=== PATIENT | female | born 1990 | race Caucasian/White ===

== ENCOUNTER 2018-03-18 15:30 | Outpatient (CLI) | payer MEDICAID, SELFPAY ==
[2018-03-22 09:01] LABS: HIV-1/2 Ag & Ab Screen Negative (NEGAT)
[2018-03-22 09:10] LABS: Hepatitis B Surface Ag Negative (NEGAT)
[2018-03-22 11:44] LABS: Hepatitis C Ab w Rflx HCV PCR Negative (NEGAT)
[2018-03-22 14:13] LABS: Syphilis Serology (RPR) Negative (Negative)
== END 2018-03-18 15:50 ==
PROVIDERS: PCP Family Medicine; Visit Provider Nurse Practitioner Women's Health
DX: Z11.3 Encounter for screening for infections with a predominantly sexual mode of transmission (principal); Z11.59 Encounter for screening for other viral diseases; Z01.84 Encounter for antibody response examination; Z11.4 Encounter for screening for human immunodeficiency virus [HIV]
CPT/HCPCS: 36415; 86803; 87340; 87389; 86592

== ENCOUNTER 2018-03-18 17:13 | Outpatient (REF) | payer MEDICAID, SELFPAY ==
[2018-03-22 13:36] LABS: Chlamydia Result Negative; GC Result Negative; Specimen Description CERVIX
== END 2018-03-18 17:33 ==
LOC: LBN 17:13
PROVIDERS: PCP Family Medicine; Visit Provider Nurse Practitioner Women's Health
DX: Z11.3 Encounter for screening for infections with a predominantly sexual mode of transmission (principal)
CPT/HCPCS: 87491; 87591

== ENCOUNTER 2018-05-10 02:37 | Outpatient (CLI) | payer MEDICAID, SELFPAY ==
--- NOTE | 2018-05-10 | PFT_ITS ---
PULMONARY FUNCTION TEST REPORT Patient identification Elizabeth Roach DATE OF 88 DATE OF SERVICE 05/10/18 REQUESTING PROVIDER Moriah Ruvalcaba NP INTERPRETATION OF STUDY Spirometry shows no evidence of obstructive airways disease. No bronchodilator response. LUNG VOLUMES - Lung volumes show no evidence of restriction. DIFFUSION CAPACITY- Markedly elevated. AIRWAY RESISTANCE - Elevated. IMPRESSION While there is no evidence of obstructive airways disease, the constellation of findings with markedly elevated diffusion capacity and airways resistance, can be seen in asthma. Clinical correlation recommended. Nydia Guidry M.D. Debi T 05/14/18 Methacholine challenge test Patient identification Elizabeth Roach DATE OF 88 DATE OF SERVICE 05/10/18 Methacholine challenge test After normal spirometry, Methacholine challenge testing was carried out up to a concentration of 16 mg per dl with good patient effort. At the highest concentration, the patient had a 17% drop in FEV1 and there was gradual decrease in FEV1 throughout the test. IMPRESSION Based on ATF criteria, this is considered to be a negative Methacholine challenge test, however, given the gradual and fairly impressive drop in FEV1 throughout the test in conjunction with very high diffusion capacity, and airways resistance on baseline pulmonary function testing, this study and the constellation of findings are still suggestive of underlying hyper reactive airways disease, therefore clinical correlation recommended. Nydia Guidry M.D. Debi T 05/14/18
[2018-05-10] MEDS: Albuterol HFA 18 GM 200 PUFF INH IH (15:21)
[2018-05-10] MEDS: Methacholine 100 MG VIAL IH (15:21)
[2018-05-10] MEDS: Inhaler, Assist Device 1 EACH MC (15:21)
== END 2018-05-10 02:57 ==
PROVIDERS: PCP Family Medicine; Visit Provider Nurse Practitioner Family
DX: R06.2 Wheezing (principal); R94.2 Abnormal results of pulmonary function studies
CPT/HCPCS: 94060; 94150; 94726; 94729; 95070; 94010; J7674

== ENCOUNTER 2018-06-14 00:55 | Outpatient (CLI) | payer MEDICAID, SELFPAY ==
--- NOTE | 2018-06-14 13:39 | DI.RAD_ITS ---
SYMPTOMS/DIAGNOSIS: REACTIVE AIRWAY DYSFUNCTION SYNDROME, J68.3, ? ASTHMA CHEST X-RAY, PA AND LATERAL: Comparison is 09/22/10. The heart is normal in size. The lungs are clear. The mediastinal structures and pleura appear intact. IMPRESSION: Normal chest.
== END 2018-06-14 01:15 ==
PROVIDERS: PCP Nurse Practitioner Family; Visit Provider Nurse Practitioner Family
DX: J68.3 Other acute and subacute respiratory conditions due to chemicals, gases, fumes and vapors (principal)
CPT/HCPCS: 71046

== ENCOUNTER 2019-07-29 02:02 | Outpatient (CLI) | payer MEDICAID, SELFPAY ==
--- NOTE | 2019-07-29 07:30 | DI.US_ITS ---
EXAM: US PELVIS TRANSVAGINAL CLINICAL HISTORY: Oligomenorrhea, PCOS, E28.2. TECHNIQUE: Transabdominal and transvaginal pelvic ultrasound was performed using standard protocol. COMPARISON: US PELVIS TRANSVAG from 07/31/2010 FINDINGS: KIDNEYS: Kidneys are symmetric in size. No evidence of renal calculi. No evidence of hydronephrosis. No renal mass or cyst identified. UTERUS: Position: Anteverted. Size: 6.5 long by 2.8 AP by 4.1 transverse cm Endometrium: 0.3 cm. Normal for patient's menstrual status. Myometrium: Unremarkable. Cervix: Cervical nabothian cyst. OVARIES: Right: 2.8 x 3 x 1.6 cm. Right ovarian volume is 10.4 cc. Cyst or mass: Multiple follicular cysts in the right ovary. (Greater than 20). Left: 2.8 x 2 x 2.4 cm. Left ovarian volume is 10.6 cc. Cyst or mass: Multiple follicular cysts in the left ovary. (Greater than 25). DOPPLER: Color: Symmetric and uniform flow to both ovaries. No hyperemia. Duplex: Normal ovarian arterial waveforms visualized. CUL-DE-SAC: Free fluid: None. Other: None. IMPRESSION: 1. Normal sonographic appearance of the kidneys. 2. Normal-appearing uterus with endometrial stripe within normal limits. 3. Multiple follicular cysts in both ovaries. Polycystic ovarian syndrome may be considered. DATA REPOSITORY:
== END 2019-07-29 02:22 ==
PROVIDERS: PCP Nurse Practitioner Family; Visit Provider Obstetrics & Gynecology
DX: N91.5 Oligomenorrhea, unspecified (principal); E28.2 Polycystic ovarian syndrome
CPT/HCPCS: 76830; 76856

== ENCOUNTER 2019-10-25 00:54 | Outpatient (CLI) | payer MEDICAID, SELFPAY ==
--- NOTE | 2019-10-25 | DI.US_ITS ---
APPROVED REPORT EXAM: Comprehensive 2D, Doppler, and color-flow Echocardiogram Patient Location: Out-Patient Drug Safety Associate: Kaity Lynch RDCS (AE) Indications: Exertional chest pain, Palpitations, Substance abuse Other Information Study Quality: Good Conclusion Left-ventricular chamber size and wall thickness. Estimated ejection fraction is 60 to 65%. There a re no segmental wall motion abnormalities Normal right ventricular size and systolic function Atria are normal in size There are no structural valvular abnormalities nor any hemodynamically significant valvular abnormali ties Wall motion Left Ventricle The left ventricle is normal size. The left ventricular systolic function is normal. The left ventric ular ejection fraction is within the normal range. There is normal left ventricular wall thickness. T here is normal LV segmental wall motion. There is no ventricular septal defect visualized. . LVEF is 60-65%. Right Ventricle The right ventricle is normal size. The right ventricular systolic function is normal. Atria The left atrium size is normal. The right atrium size is normal. The interatrial septum is intact wit h no evidence for an atrial septal defect. Aortic Valve Aortic valve is trileaflet. There is no aortic valvular stenosis. No aortic regurgitation is present. Mitral Valve The mitral valve is normal in structure. No evidence of mitral valve stenosis. Trace mitral regurgita tion. Tricuspid Valve The tricuspid valve is normal in structure. There is no tricuspid valve stenosis. Trace tricuspid reg urgitation. Unable to assess PA pressure. Pulmonic Valve The pulmonary valve is normal in structure. There is no pulmonic valvular stenosis. Trace pulmonic re gurgitation. Great Vessels The aortic root is normal in size. The ascending aorta is normal in size. IVC is normal in size and c ollapses >50% with inspiration. Pericardium There is no pericardial effusion. 2D Dimensions IVSD d PLAX 0.90 cm F: 0.6-1.0 LV Vol A2C d MOD 105.4 mL LVPW d PLAX 0.94 cm F: 0.6 - 1.0 LV Vol A4C d MOD 127.0 mL LVID d PLAX 5.17 cm F: 3.8 - 5.2 LA vol/ BSA A2C s A-L 17.7 mL/m2 LVDs 3.35 cm F: 2.2 - 3.5 LA vol/ BSA A4C s A-L 24.3 mL/m2 Ao Root d 2.18 cm F: 2.7 - 3.3 LA Vol/ BSA Biplane s A-L 21.9 mL/m2 RA Area A4C 15.93 cm2 LA Area A4C s MOD 17.72 cm2 RA Vol/ BSA A4C s A-L 23.4 mL/m2 LA Area A2C s MOD 14.34 cm2 Ao Asc Diam d 2.64 cm F: 2.3 - 3.1 LV EF A4C MOD 59.2 % LV EF Teichholz 63.2 % LV EF A2C MOD 60.4 % LVEF (Brewster's) 58.67 % F: 54 - 74 LV EF Biplane MOD 58.7 % LV Volume 87.06 mL F: 46 - 106 SV 68.52 mL LV Volume Index 42.88 mL/m2 F: 29 - 61 SV Index 33.64 mL/m2 LV Vol Biplane MOD 116.8 mL FS 34.45 % M-Mode TAPSE 2.68 cm (M/F) >1.7 LV Diastology MV E' medial 0.126 (>0.07 m/s) E/A Ratio 1.8 LV E/e MED 5.50 (<14) MV E Vmax 0.70 (0.4-1.3 m/s) MV E' lateral 0.113 (>0.1 m/s) MV A Vmax 0.40 (0.4-1.3 m/s) LV E/e LAT 6.15 (<14) MV E/A Ratio 1.68 MV E/E' medial 5.54 MV E/E' lateral 6.16 Aortic Valve LVOT Area 3.69 cm2 AoV Area Vmax 2.93 cm2 LVOT Vmax 1.05 m/s AoV Area/ BSA (Vmax) 1.44 cm2/m2 LVOT Mean Shay. 0.64 m/s NATHANIEL Mean Shay. 2.44 cm2 LVOT Peak Grad 4.4 mmHg NATHANIEL Mean Shay. Index 1.20 cm2/m2 LVOT Mean Grad 2.0 mmHg LVOT VTI 0.204 m LVOT Diam s 2.15 cm AoV Vmax 1.32 m/s Velocity Ratio 0.79 AoV Mean Shay. 0.97 m/s AoV Peak Grad 7.0 mmHg LVOT SV 75.38 mL AoV Mean Grad 4.0 mmHg AoV VTI 0.250 m AoV Area VTI 3.02 cm2 AoV Area/ BSA (VTI) 1.48 cm/m2 Mitral Valve MV DT 206 (160-240 msec) MV PHT 60 msec MV Area PHT 3.69 cm2 Pulmonary Valve PV Vmax 1.08 (0.5-1.5 m/s) RVOT Peak Gr. 2.19 mmHg PV Peak Grad 4.6 mmHg RVOT Mean Gr. 1.10 mmHg PV Mean Grad 2.2 mmHg RVOT VTI 0.167 m PV VTI 0.225 m RVOT Vmax 0.74 m/s
== END 2019-10-25 01:14 ==
PROVIDERS: PCP Nurse Practitioner Family; Visit Provider Family Medicine
DX: R07.89 Other chest pain (principal); F14.21 Cocaine dependence, in remission
CPT/HCPCS: 93306

== ENCOUNTER 2019-12-14 17:03 | Outpatient (REF) | payer MEDICAID, SELFPAY ==
[2019-12-16 19:48] LABS: Patient Race White; SARS-CoV-2 RNA Undetected (Undetected); SARS-CoV-2 Specimen Source Nasopharynx
== END 2019-12-14 17:23 ==
LOC: NCHCN 17:03
PROVIDERS: PCP Nurse Practitioner Family; Visit Provider Nurse Practitioner Family
DX: R05 Cough (principal)
CPT/HCPCS: U0003

== ENCOUNTER 2020-07-09 15:45 | Outpatient (REF) | payer MEDICAID, SELFPAY ==
--- NOTE | 2020-07-09 13:00 | PAPFT_PTH ---
PATIENT: Elizabeth Roach LOC: [facility] U#:[id number] AGE/SX: 30/F ROOM: RE07/09/[address]: FLY Oneal : 1990 BED: DIS: 07/09/2020 SPEC #: [id number] RECD: 07/09/20 18:34 STATUS: NICRock REQ #: [id number] KATINA: 07/09/20 13:[address]: Adwoa Branham DEPT: [facility] Cytology RECD BY: Stacy Gomez ENTERED: 07/09/20 18:35 SP TYPE: PAPFT OTHR DR: Moriah Ruvalcaba Tissues: 1 - CX/ENDOCX FOR PAP SMEARS Procedures: PAP THIN PREP/UVM Screening HPV DNA PROBE Comments: [id number]
[2020-07-10 13:50] LABS: Chlamydia Result Negative (Negative); GC Result Negative (Negative)
== END 2020-07-09 15:46 | disposition home or self-care (01) ==
LOC: LBN 15:45
PROVIDERS: PCP Nurse Practitioner Family; Visit Provider Nurse Practitioner Family
DX: Z11.3 Encounter for screening for infections with a predominantly sexual mode of transmission (principal); Z12.4 Encounter for screening for malignant neoplasm of cervix; Z11.51 Encounter for screening for human papillomavirus (HPV)
CPT/HCPCS: 87491; 87591; 88142; 87624

== ENCOUNTER 2021-02-11 18:58 | Outpatient (REF) | payer MEDICAID, SELFPAY ==
[2021-02-11 19:34] LABS: Anion Gap 6.8 mmol/L (3-11); BUN 13 mg/dL (7-18); CO2 29.2 mmol/L (21.0-32.0); CREATININE 0.9 mg/dL (0.55-1.02); Calcium 8.8 mg/dL (8.5-10.1); Chloride 105 mmol/L (98-107); Glucose 115 mg/dL (74-106); Potassium 4.2 mmol/L (3.5-5.1); Sodium 141 mmol/L (136-145)
[2021-02-11 19:38] LABS: Hemoglobin A1C 5.4 % (<5.7)
== END 2021-02-11 18:59 | disposition home or self-care (01) ==
LOC: NCHCN 18:58
PROVIDERS: PCP Nurse Practitioner Family; Visit Provider Family Medicine
DX: R73.09 Other abnormal glucose (principal); Z51.81 Encounter for therapeutic drug level monitoring
CPT/HCPCS: 80048; 83036

== ENCOUNTER 2021-09-26 07:08 | Emergency (ER) | payer MEDICAID, SELFPAY ==
[2021-09-26 07:13] VITALS: BP 129/107; PULSE 83; RESP 16; TEMP 37.2; O2SAT 99
--- NOTE | 2021-09-26 08:00 | DI.RAD_ITS ---
Exam(s) XR RIBS RT W PA LAT CHEST EXAM: XR RIBS RT W PA LAT CHEST CLINICAL HISTORY: Right Rib pain TECHNIQUE: 2D digital imaging was performed. COMPARISON: CR XR CHEST 2V PA LATERAL from 06/14/2018 FINDINGS: Six views: Right ribs-four views: There are no acute rib fractures evident. No lytic rib lesions identified. Chest x-ray-two views: No lung contusion or pneumothorax. There is no pleural effusion evident. Heart size is normal and there is no significant mediastinal widening. IMPRESSION: 1. No rib fractures evident. Also no obvious rib lesions. 2. No ipsilateral lung nor pleural abnormality evident. No pneumothorax. DATA REPOSITORY: RADIATION DOSE DELIVERED:
--- NOTE | 2021-09-26 08:00 | DI.RAD_ITS ---
Exam(s) XR SHOULDER RT COMPLETE 2+V EXAM: XR SHOULDER RT COMPLETE 2+V CLINICAL HISTORY: Right shoulder pain. TECHNIQUE: 2D digital imaging was performed. COMPARISON: CR LEFT SCAPULA from 09/22/2010 FINDINGS: Five views: No evidence of fracture or dislocation. No soft tissue calcifications. Subacromial space unremarkab le. No degenerative changes in the glenohumeral and AC joints. Bone density normal. No osseous les ions. IMPRESSION: No significant radiograph findings in the right shoulder. DATA REPOSITORY: RADIATION DOSE DELIVERED:
--- NOTE | 2021-09-26 08:09 | PDOC.ERCMPRO ---
- If Service Date Differs Date of service: 09/26/21 Time of Service: 08:10 Care Management Progress Note SBIRT screen positive for nicotine (4) and alcohol (AUDIT 8). Brief intervention regarding alcohol and low risk guidelines for harm reduction. Pt reports she has been drinking only twice monthly but typically has 5-6 drinks per occasion. Pt states she has been vaping nicotine daily after switching to vape from smoking to reduce risk. Pt was not interested in any cessation resources at this time.
--- NOTE | 2021-09-26 08:14 | ED.GENADUL_ITS ---
Discharge Plan Disposition Patient Disposition: HOME Condition: Stable Discharge Details Clinical Impression: Musculoskeletal arm pain Primary Care Provider: Moriah Ruvalcaba ED Provider: Cindy Bardales Home Meds and New Rx's Prescriptions: No Action albuterol sulfate 90 mcg/actuation aerosol powdr breath activated 2 inh IH Q6H PRN spironolactone 50 mg tablet 50 mg PO DAILY Qty: 60 4RF metformin [Glucophage] 500 mg tablet 500 mg PO DAILY Qty: 90 4RF medroxyprogesterone [Provera] 5 mg tablet 5 mg PO DAILY Qty: 21 4RF Rx Instructions: Take the first 7 days of the month for with drawl bleed to follow (do not take if you suspect you are ) dextroamphetamine-amphetamine [Adderall] 10 MG tablet 10 mg PO BID budesonide-formoterol [Symbicort] 160-4.5 mcg/actuation HFA aerosol inhaler 2 puff IH BID clindamycin phosphate 1 % solution 1 applic TP BID lamotrigine 100 mg tablet 200 mg PO DAILY metformin 500 mg tablet 500 mg PO DAILY Label Comments: TAKE 1 TABLET BY MOUTH DAILY lorazepam 0.5 mg tablet 0.5 mg PO PRN PRN Label Comments: TAKE 1 TABLET BY MOUTH TWICE DAILY NEEDED FOR ANXIETY dextroamphetamine-amphetamine 20 mg tablet 20 mg PO DAILY Spiriva with HandiHaler 18 mcg capsule, w/inhalation device 18 mcg INHALATION DAILY Label Comments: INHALE THE CONTENTS OF 1 CAPSULE VIA INHALATION DEVICE EVERY DAY DIRECTED budesonide-formoterol [Symbicort] 160-4.5 mcg/actuation HFA aerosol inhaler 160 inh INHALATION PRN PRN Label Comments: Inhale 2 puff by mouth twice a day Discharge Instructions Instructions: Muscle Strain (ED) Additional Instructions: At this time x-rays are within normal limits. No evidence of dislocation, inflammation or bony abnormality. Lungs are also within normal limits. Take the tramadol with food as directed. Apply topical icy hot or Biofreeze or similar. Alternate ice and heat. Attempt massage. You will start feeling better over the next 3 to 5 days. May take few weeks for it to completely heal. Follow up with primary care provider in 3-5 days. Return to ED sooner if any worsening or concerns. Increase oral fluids. Please take Tylenol or Ibuprofen with food every 4-6 hours as needed for pain and swelling. Referrals: Moriah Ruvalcaba [Primary Care Provider] - 5 days Medical Decision Making 31-year-old female presents to the ER with chief complaint of right lateral rib pain, right shoulder pain which began yesterday. Morning after stretching. She reports that the pain starts in her rib cage and shoots up to her neck. Patient is tearful, reports posterior right shoulder pain and anterior right lateral rib pain with right arm abduction. X-ray ribs and right shoulder ordered. Lidocaine patch and ibuprofen 800 mg p.o. X-rays show no acute bony, pulmonary abnormality. No dislocations noted. We will give patient tramadol dispo follow-up with primary care provider will instruct on RICE procedures alternating ice and heat. Discussed x-ray results with patient who verbalized understanding. Discussed home care and strict return instructions. This text was generated using Fliqzation system, please disregard any oddities of phrase or misspellings. Medical Records Medical records reviewed: Yes I reviewed the patient's medical records. Imaging Data Radiologic Study: Imaging: X-Ray Radiologist's impression: EXAM: XR RIBS RT W PA LAT CHEST CLINICAL HISTORY: Right Rib pain TECHNIQUE: 2D digital imaging was performed. COMPARISON: CR XR CHEST 2V PA LATERAL from 06/14/2018 FINDINGS: Six views: Right ribs-four views: There are no acute rib fractures evident. No lytic rib lesions identified. Chest x-ray-two views: No lung contusion or pneumothorax. There is no pleural effusion evident. Heart size is normal and there is no significant mediastinal widening. IMPRESSION: 1. No rib fractures evident. Also no obvious rib lesions. 2. No ipsilateral lung nor pleural abnormality evident. No pneumothorax. Radiologic Study #2: Imaging: X-Ray Radiologist's impression: EXAM: XR SHOULDER RT COMPLETE 2+V CLINICAL HISTORY: Right shoulder pain. TECHNIQUE: 2D digital imaging was performed. COMPARISON: CR LEFT SCAPULA from 09/22/2010 FINDINGS: Five views: No evidence of fracture or dislocation. No soft tissue calcifications. Subacromial space unremarkable. No degenerative changes in the glenohumeral and AC joints. Bone density normal. No osseous lesions. IMPRESSION: No significant radiograph findings in the right shoulder. HPI General Mode of arrival: ambulatory . Date/Time Provider Initiated Documentation: 09/26/21 08:05 . Limitations to Documentation: no limitations . Information obtained by: patient, RN notes reviewed and old records reviewed . HPI Narrative: 31-year-old female presents to the ER with chief complaint of right lateral rib pain, right shoulder pain which began yesterday. Morning after stretching. She reports that the pain starts in her rib cage and shoots up to her neck. Patient is tearful, reports posterior right shoulder pain and anterior right lateral rib pain with right arm abduction. She is able to raise her arm approximately 90 degrees and complains of pain. Lungs are clear to auscultation bilaterally. Denies any cough or respiratory distress, she has been taking muscle relaxers and Flexeril at home with little to no relief. No other associated symptoms. Patient has a past medical history of PCOS, migraines, anxiety, obesity. Related Data Home Medications Medication Instructions Recorded Confirmed dextroamphetamine-amphetamine 10 10 mg PO BID 08/10/17 03/26/20 mg tablet (Adderall) albuterol sulfate 90 mcg/actuation 2 inh inhalation Q6H PRN 05/10/18 03/26/20 breath activated powder inhaler budesonide-formoterol HFA 160 2 puff inhalation BID 03/23/19 03/26/20 mcg-4.5 mcg/actuation aerosol inhaler (Symbicort) clindamycin phosphate 1 % topical 1 applic topical BID 03/23/19 03/26/20 solution lamotrigine 100 mg tablet 200 mg PO DAILY 03/23/19 03/26/20 medroxyprogesterone 5 mg tablet 5 mg PO DAILY #21 tabs 03/26/20 03/26/20 (Provera) metformin 500 mg tablet 500 mg PO DAILY #90 tabs 03/26/20 09/26/21 (Glucophage) spironolactone 50 mg tablet 50 mg PO DAILY #60 tabs 03/26/20 09/26/21 budesonide-formoterol HFA 160 160 inh inhalation PRN PRN 09/26/21 09/26/21 mcg-4.5 mcg/actuation aerosol inhaler (Symbicort) dextroamphetamine-amphetamine 20 20 mg PO DAILY 09/26/21 09/26/21 mg tablet lorazepam 0.5 mg tablet 0.5 mg PO PRN PRN 09/26/21 09/26/21 metformin 500 mg tablet 500 mg PO DAILY 09/26/21 09/26/21 tiotropium bromide 18 mcg capsule 18 mcg inhalation DAILY 09/26/21 09/26/21 with inhalation device (Spiriva with HandiHaler) Previous Rx's Medication Instructions Recorded medroxyprogesterone 5 mg tablet 5 mg PO DAILY #21 tabs 03/26/20 (Provera) metformin 500 mg tablet 500 mg PO DAILY #90 tabs 03/26/20 (Glucophage) spironolactone 50 mg tablet 50 mg PO DAILY #60 tabs 03/26/20 Allergies Allergy/AdvReac Type Severity Reaction Status Date / Time lamotrigine Allergy Intermediate body rash Verified 09/26/21 07:19 varenicline tartrate AdvReac Severe Psychotic Verified 09/26/21 07:19 [From Chantix] Reaction General Stated Complaint: Orthopedic JULI: 4 Review of Systems All systems reviewed & are unremarkable except as noted in HPI and below Musculoskeletal Musculoskeletal: Reports as per HPI PFSH All Active Problems (Updated 09/26/21 @ 09:17 by Cindy Bardales NP) Musculoskeletal arm pain (Acute) Abnormal uterine bleeding (Acute) PCOS (polycystic ovarian syndrome) (Acute) Multiple lipomas (Acute) Hirsutism (Chronic 05/04/17) Migraine (Chronic 05/04/17) Medical History Acute sinusitis, unspecified Amenorrhea, unspecified Anxiety Attention and concentration deficit Body mass index (BMI) 40.0-44.9, adult Chronic back pain Constipation GERD (gastroesophageal reflux disease) Herpes simplex type 1 infection Hidradenitis suppurativa History of PCOS Hx of hemorrhoids Lipoma of back Macromastia Nonspecific abnormal Papanicolaou smear of cervix Obesity Reactive airways dysfunction syndrome Tobacco use Surgical History Biopsy, Soft Tissue (05/19/17) right breast - follicular cyst Family History Self Adopted Other Multiple lipomas Social History Smoking/Tobacco Use Status: Former Tobacco Use Smoking risk assessment performed?: Yes Drug use: Never Substance use type: does not use Do you feel safe at home: Yes Do you feel safe in your relationship?: Yes Female Reproductive History Menstrual control method: none History History 1 Para 0 Hx # Term Pregnancies Multiple births Hx # Pregnancies Ectopic pregnancies AB induced Hx Number of Living Children AB spontaneous Exam Const General: cooperative, healthy appearing, comfortable and well developed Nutritional Appearance: overweight Orientation: alert and oriented x3 Neck Neck: full ROM and supple Resp Effort & Inspection: normal respiratory effort, able to speak in complete sentences, no audible wheezes, no cough and not labored Auscultation: clear to auscultation bilaterally Cardio Rate: regular rate Rhythm: regular rhythm Heart Sounds: S1 normal and S2 normal Back/Spine/Pelvis Back: no CVA tenderness Cervical Spine: normal cervical lordosis Thoracic/Lumbar Spine: thoracic and lumbar spine normal to inspection and other (Right lateral rib cage tenderness: Patient reports deep pain.) Skin General skin exam: no rashes or lesions noted Lesions: no lesions Rashes: no rashes Course Vital Signs Vital signs: Vital Signs Temperature 37.2 C 09/26/21 07:13 Pulse 83 09/26/21 07:13 Respiratory Rate 16 09/26/21 07:13 Blood Pressure 129/107 H 09/26/21 07:13 Pulse Oximetry 99 09/26/21 07:13 Temperature 37.2 C 09/26/21 07:13 Pulse 83 09/26/21 07:13 Respiratory Rate 16 09/26/21 07:13 Respiratory Effort 09/26/21 07:23 Blood Pressure 129/107 H 09/26/21 07:13 Pulse Oximetry 99 09/26/21 07:13 Pain Level 10 09/26/21 07:23
[2021-09-26] MEDS: Ibuprofen 800 MG TAB PO (09:04)
[2021-09-26] MEDS: Lidocaine 5% Patch 1 PATCH TP (09:04)
== END 2021-09-26 09:51 | disposition home or self-care (01) ==
PROVIDERS: Emergency Provider Registered Nurse Emergency; PCP Nurse Practitioner Family
DX: M79.601 Pain in right arm (principal); R07.81 Pleurodynia; M25.511 Pain in right shoulder; E66.3 Overweight; Z87.891 Personal history of nicotine dependence
CPT/HCPCS: 99284; 71046; 71100; 73030

== ENCOUNTER 2021-09-28 03:58 | Emergency (ER) | payer MEDICAID, SELFPAY ==
[2021-09-28 04:05] VITALS: BP 131/75; PULSE 83; RESP 14; TEMP 36.4; O2SAT 0
--- NOTE | 2021-09-28 04:24 | ED.GENADUL_ITS ---
Discharge Plan Disposition Patient Disposition: HOME Condition: Good Discharge Details Clinical Impression: Muscle strain of right upper back Primary Care Provider: Moriah Ruvalcaba ED Provider: Mateo Willams Home Meds and New Rx's Prescriptions: New lidocaine [Lidoderm] 5 % adhesive patch,medicated 1 patch Topical Q24H Qty: 15 0RF Continued albuterol sulfate 90 mcg/actuation aerosol powdr breath activated 2 inh IH Q6H PRN spironolactone 50 mg tablet 50 mg PO DAILY Qty: 60 4RF metformin [Glucophage] 500 mg tablet 500 mg PO DAILY Qty: 90 4RF medroxyprogesterone [Provera] 5 mg tablet 5 mg PO DAILY Qty: 21 4RF Rx Instructions: Take the first 7 days of the month for with drawl bleed to follow (do not take if you suspect you are ) dextroamphetamine-amphetamine [Adderall] 10 MG tablet 10 mg PO BID budesonide-formoterol [Symbicort] 160-4.5 mcg/actuation HFA aerosol inhaler 2 puff IH BID clindamycin phosphate 1 % solution 1 applic TP BID lamotrigine 100 mg tablet 200 mg PO DAILY metformin 500 mg tablet 500 mg PO DAILY Label Comments: TAKE 1 TABLET BY MOUTH DAILY lorazepam 0.5 mg tablet 0.5 mg PO PRN PRN Label Comments: TAKE 1 TABLET BY MOUTH TWICE DAILY NEEDED FOR ANXIETY dextroamphetamine-amphetamine 20 mg tablet 20 mg PO DAILY Spiriva with HandiHaler 18 mcg capsule, w/inhalation device 18 mcg INHALATION DAILY Label Comments: INHALE THE CONTENTS OF 1 CAPSULE VIA INHALATION DEVICE EVERY DAY DIRECTED budesonide-formoterol [Symbicort] 160-4.5 mcg/actuation HFA aerosol inhaler 160 inh INHALATION PRN PRN Label Comments: Inhale 2 puff by mouth twice a day Discharge Instructions Additional Instructions: At this time your symptoms are consistent with a rhomboid muscle strain pattern. Please continue to use the heating pad, Lidoderm patches, Tylenol and Motrin, and cyclobenzaprine as directed. Please continue to perform mild gentle st retches of the back area. You can take 1 mg of Ativan every 8 hours as needed for muscle tension. Please be well aware that this may cause lightheadedness, and drowsiness. Do not take this medication with the cyclobenzaprine. If you notice any worsening of your symptoms, or any new symptoms such as vomiting, diarrhea, fever, chills, shortness of breath, chest pain, numbness, weakness, or fainting , please return immediately to the emergency department for reevaluation. Please follow up with your primary care provider as soon as possible for reassessment and reevaluation. As always, it was a pleasure participating in your medical care today. Referrals: Moriah Ruvalcaba [Primary Care Provider] - Medical Decision Making This is a 31-year-old female with a past medical history of reactive airway disease, BMI of 37.8, previous lipomas, PCOS, who presents today for right back pain. Patient states that 2 to 3 days ago she had been stretching, had lifted her arm above her head and developed a notable cramping sensation in her right upper back. She came to the emergency department the next day, chest x-rays and rib x-rays were performed which were negative. Diagnosis was musculoskeletal strain. She was started on cyclobenzaprine, recommended close please also follow up with your primary care provider as soon as possible for reassessment and reevaluation. Patient was unable to to schedule a close follow-up appointment with her family doctor secondary to a fall schedule, and she has had continued but slowly improving pain. She states that the pain is better than it was before but it is still keeping her from sleeping at night. She denies any shortness of breath, arm neck or shoulder pain, trauma, pleuritic chest pain, long trips, surgeries, procedures, family history of pulmonary embolisms or blood clots, oral contraceptive use, or family history of cardiac disease at young age. She does vape but does not smoke. She states that ice slightly improves her symptoms. She does not feel that the muscle relaxer is improving her symptoms. Exam demonstrates well-appearing female. Physical exam demonstrates a notable spasm and reproducible tenderness over the rhomboid muscle on the right shoulder. No other abnormalities on exam otherwise. No rib subluxation, no auscultation asymmetry for the lungs. Vital signs stable. Symptoms at this time appear notably clinically consistent with a muscle spasm. Patient states that her symptoms are gradually improving but she is most frustrated with not being able to sleep tonight. We did discuss risks and benefits of narcotic options, or tramadol. However the patient did show that she does have quite a few 0.5 mg Ativan still that she is prescribed by her PCP. I discussed with her that this is a muscle relaxant would probably be most effective. I recommended that she take 1 to 1.5 mg every 8 hours as needed for spasm or to sleep. I did inform her very clearly of the potential to make her feel more drowsy from this medication use, and I did make it very clear not to take the cyclobenzaprine while taking Ativan. Patient understands this. We will give a Lidoderm patch here, and sent a prescription to her pharmacy. We will recommend continued NSAIDs, stretching, and heating pad as needed. Recommend physical therapy on an outpatient basis. Discussed red flags for which to return. At this time there is no clinical evidence of pneumothorax, dissection, or ACS. I have extensively reviewed the treatment plan and discharge instructions with the patient and their family. I have addressed all patient concerns at this time. The patient and family was made aware of what symptoms to monitor for that would warrant a return to the emergency department. Discussed the plan with the patient and family, they demonstrate verbal understanding and agreement with our assessment and plan at this time. The documentation in this chart was dictated using [employer] dictation software. Please excuse any dictation errors. HPI General Date/Time Provider Initiated Documentation: 09/28/21 04:02 . HPI Narrative: This is a 31-year-old female with a past medical history of reactive airway disease, BMI of 37.8, previous lipomas, PCOS, who presents today for right back pain. Patient states that 2 to 3 days ago she had been stretching, had lifted her arm above her head and developed a notable cramping sensation in her right upper back. She came to the emergency department the next day, chest x-rays and rib x-rays were performed which were negative. Diagnosis was musculoskeletal strain. She was started on cyclobenzaprine, recommended close please also follow up with your primary care provider as soon as possible for reassessment and reevaluation. Patient was unable to to schedule a close follow-up appointment with her family doctor secondary to a fall schedule, and she has had continued but slowly improving pain. She states that the pain is better than it was before but it is still keeping her from sleeping at night. She denies any shortness of breath, arm neck or shoulder pain, trauma, pleuritic chest pain, long trips, surgeries, procedures, family history of pulmonary embolisms or blood clots, oral contraceptive use, or family history of cardiac disease at young age. She does vape but does not smoke. She states that ice slightly improves her symptoms. She does not feel that the muscle relaxer is improving her symptoms. Related Data Home Medications Medication Instructions Recorded Confirmed dextroamphetamine-amphetamine 10 10 mg PO BID 08/10/17 03/26/20 mg tablet (Adderall) albuterol sulfate 90 mcg/actuation 2 inh inhalation Q6H PRN 05/10/18 03/26/20 breath activated powder inhaler budesonide-formoterol HFA 160 2 puff inhalation BID 03/23/19 03/26/20 mcg-4.5 mcg/actuation aerosol inhaler (Symbicort) clindamycin phosphate 1 % topical 1 applic topical BID 03/23/19 03/26/20 solution lamotrigine 100 mg tablet 200 mg PO DAILY 03/23/19 03/26/20 medroxyprogesterone 5 mg tablet 5 mg PO DAILY #21 tabs 03/26/20 03/26/20 (Provera) metformin 500 mg tablet 500 mg PO DAILY #90 tabs 03/26/20 09/26/21 (Glucophage) spironolactone 50 mg tablet 50 mg PO DAILY #60 tabs 03/26/20 09/26/21 budesonide-formoterol HFA 160 160 inh inhalation PRN PRN 09/26/21 09/26/21 mcg-4.5 mcg/actuation aerosol inhaler (Symbicort) dextroamphetamine-amphetamine 20 20 mg PO DAILY 09/26/21 09/26/21 mg tablet lorazepam 0.5 mg tablet 0.5 mg PO PRN PRN 09/26/21 09/26/21 metformin 500 mg tablet 500 mg PO DAILY 09/26/21 09/26/21 tiotropium bromide 18 mcg capsule 18 mcg inhalation DAILY 09/26/21 09/28/21 with inhalation device (Spiriva with HandiHaler) lidocaine 5 % topical patch 1 patch topical Q24H #15 ea 09/28/21 (Lidoderm) Previous Rx's Medication Instructions Recorded medroxyprogesterone 5 mg tablet 5 mg PO DAILY #21 tabs 03/26/20 (Provera) metformin 500 mg tablet 500 mg PO DAILY #90 tabs 03/26/20 (Glucophage) spironolactone 50 mg tablet 50 mg PO DAILY #60 tabs 03/26/20 lidocaine 5 % topical patch 1 patch topical Q24H #15 ea 09/28/21 (Lidoderm) Allergies Allergy/AdvReac Type Severity Reaction Status Date / Time lamotrigine Allergy Intermediate body rash Verified 09/26/21 07:19 varenicline tartrate AdvReac Severe Psychotic Verified 09/26/21 07:19 [From Chantix] Reaction General Stated Complaint: GenMedical JULI: 4 Review of Systems All systems reviewed & are unremarkable except as noted in HPI and below PFSH All Active Problems Musculoskeletal arm pain (Acute) Muscle strain of right upper back (Acute) Abnormal uterine bleeding (Acute) PCOS (polycystic ovarian syndrome) (Acute) Multiple lipomas (Acute) Hirsutism (Chronic 05/04/17) Migraine (Chronic 05/04/17) Medical History Acute sinusitis, unspecified Amenorrhea, unspecified Anxiety Attention and concentration deficit Body mass index (BMI) 40.0-44.9, adult Chronic back pain Constipation GERD (gastroesophageal reflux disease) Herpes simplex type 1 infection Hidradenitis suppurativa History of PCOS Hx of hemorrhoids Lipoma of back Macromastia Nonspecific abnormal Papanicolaou smear of cervix Obesity Reactive airways dysfunction syndrome Tobacco use Surgical History Biopsy, Soft Tissue (05/19/17) right breast - follicular cyst Family History Self Adopted Other Multiple lipomas Social History Smoking/Tobacco Use Status: Former Tobacco Use Smoking risk assessment performed?: Yes Drug use: Never Substance use type: does not use Do you feel safe at home: Yes Do you feel safe in your relationship?: Yes Female Reproductive History Menstrual control method: none History History 1 Para 0 Hx # Term Pregnancies Multiple births Hx # Pregnancies Ectopic pregnancies AB induced Hx Number of Living Children AB spontaneous Exam Narrative Exam Narrative: 1.Const: Well-nourished, Well-developed, appearing stated age 2.Eyes: PERRL, no conjunctival injection, and symmetrical lids. 3.ENT: Atraumatic external nose and ears. Moist MM. Neck: Symmetric, trachea midline, No thyromegaly. 4.CVS: +S1/S2, No murmurs or gallops. Peripheral pulses 2+ and equal in all extremities. Brisk capillary refill in all extremities. 5.RESP: Unlabored respiratory effort. Clear to auscultation bilaterally. No wheezes rales or rhonchi 6.GI: Soft, Nontender/Nondistended, No hepatosplenomegaly. No guarding or rebound. 7.MSK: Normocephalic/Atraumatic, Extremities w/o deformity or ttp No cyanosis or clubbing, Normal movement of all extremities. Normal strength in the upper extremities. Normal sensation. Brisk capillary refill in all of the upper extremities. Evaluation of the patient's back demonstrates no midline cervical thoracic or lumbar spine tenderness. Notable spasm noted over the rhomboid muscle by the right scapula. Elevation of right arm, with extension to the shoulder allowed for near resolution of the pain. Radial pulses +2 bilaterally. 8.Skin: Warm, Dry. No rashes or lesions. 9.Neuro: certification and selection specialist II-XII grossly intact. Sensation grossly intact, no focal neurologi c deficits. 10.Psych: (AAO) x3. Appropriate mood and affect Course Vital Signs Vital signs: Vital Signs Temperature 36.4 C L 09/28/21 04:05 Pulse 83 09/28/21 04:05 Respiratory Rate 14 09/28/21 04:05 Blood Pressure 131/75 09/28/21 04:05 Pulse Oximetry 0 L 09/28/21 04:05 Temperature 36.4 C L 09/28/21 04:05 Temperature Source Skin 09/28/21 04:05 Pulse 83 09/28/21 04:05 Respiratory Rate 14 09/28/21 04:05 Respiratory Effort 09/28/21 04:11 Blood Pressure 131/75 09/28/21 04:05 Blood Pressure Position Sitting 09/28/21 04:05 Pulse Oximetry 0 L 09/28/21 04:05 Oxygen Delivery Method Room Air 09/28/21 04:05 Oxygen Flow Rate 0 09/28/21 04:05 Pain Level 10 09/28/21 04:05
[2021-09-28] MEDS: Lidocaine 5% Patch 1 PATCH TP (04:28)
== END 2021-09-28 04:37 | disposition home or self-care (01) ==
PROVIDERS: Emergency Provider Student in an Organized Health Care Education/Training Program; PCP Nurse Practitioner Family
DX: S29.012A Strain of muscle and tendon of back wall of thorax, initial encounter (principal); Z87.891 Personal history of nicotine dependence; X58.XXXA Exposure to other specified factors, initial encounter
CPT/HCPCS: 99282

== ENCOUNTER 2022-04-13 12:06 | Emergency (ER) | payer MEDICAID, SELFPAY ==
[2022-04-13 12:11] VITALS: BP 143/90; PULSE 88; RESP 15; TEMP 36.8; O2SAT 96
--- NOTE | 2022-04-13 12:15 | DI.RAD_ITS ---
Exam(s) XR THUMB RT EXAM: XR THUMB RT CLINICAL HISTORY: pain s/p fall 2 days ago. TECHNIQUE: 2D digital imaging was performed of the right finger. Three views were obtained. PA/AP, oblique, and lateral views were obtained. COMPARISON: No exams were available for comparison FINDINGS: BONES: There is an acute nondisplaced fracture through the base of the distal phalanx of the right th umb. No bony destructive lesion is seen. JOINTS: No dislocation present. SOFT TISSUE: Soft tissue swelling is noted. IMPRESSION: Nondisplaced fracture through the base of the distal phalanx of the thumb. DATA REPOSITORY: RADIATION DOSE DELIVERED:
--- NOTE | 2022-04-13 12:20 | ED.GENADUL_ITS ---
Discharge Plan Disposition Patient Disposition: Home Condition: Stable Discharge Details Clinical Impression: Closed fracture of right thumb Primary Care Provider: Moriah Ruvalcaba ED Provider: Charles Olivia Home Meds and New Rx's Prescriptions: Continued albuterol sulfate 90 mcg/actuation aerosol powdr breath activated 2 inh IH Q6H PRN medroxyprogesterone [Provera] 5 mg tablet 5 mg PO DAILY Qty: 21 4RF Rx Instructions: Take the first 7 days of the month for with drawl bleed to follow (do not take if you suspect you are ) clindamycin phosphate 1 % solution 1 applic TP BID metformin 500 mg tablet 500 mg PO DAILY Label Comments: TAKE 1 TABLET BY MOUTH DAILY lorazepam 0.5 mg tablet 0.5 mg PO PRN PRN Label Comments: TAKE 1 TABLET BY MOUTH TWICE DAILY NEEDED FOR ANXIETY dextroamphetamine-amphetamine 20 mg tablet 20 mg PO DAILY Spiriva with HandiHaler 18 mcg capsule, w/inhalation device 18 mcg INHALATION DAILY Label Comments: INHALE THE CONTENTS OF 1 CAPSULE VIA INHALATION DEVICE EVERY DAY DIRECTED budesonide-formoterol [Symbicort] 160-4.5 mcg/actuation HFA aerosol inhaler 160 inh INHALATION PRN PRN Label Comments: Inhale 2 puff by mouth twice a day Discharge Instructions Additional Instructions: You have a small break in the bone of the tip of your thumb wear the splint until pain is gone if pain is not improving within a week follow up with your primary care provider if you feel more ill or have severe worsening pain return to the emergency department Medical Decision Making 31 yo female comes in with 2 days of right thumb pain. She states it happened after she slipped from standing and landed on the right thumb twisting the thumb. HAs had pain since then so came here. She denies any pain elsewhere and feels well otherwise. She localizes the pain to the distal right thumb. There is no visible or palpable deformity but is swollen. She has full rom in extension and flexion at the joints, no pain at the mcp. Suspect strain, no findings to suggest neurovascular or tendon injury, will obtain xrays to evaluate for fracture. xray confirms distal nondisplaced fracture through base of 1st distal phalanx. Patient stable advised of the fracture. Will provide finger splint. offered ortho refferal but she declined, will see pcp if pain not improving in a week. Return precautions given Differential Diagnosis Differential Diagnosis: strain, fracture, contusion Imaging Data Radiologic Study: Attestation: I personally reviewed and interpreted this imaging study as follows: Imaging: X-Ray My impression: fracture HPI General Mode of arrival: ambulatory . Date/Time Provider Initiated Documentation: 04/13/22 12:07 . Limitations to Documentation: no limitations . Information obtained by: patient . History of Present Illness 31 year old F presents to the emergency department with the chief complaint of right thumb pain, described as moderate, Quality is described as aching, and is localized to the right (thumb). Patient reports no radiation. Patient started experiencing this day(s) (2) and it has been constant. No relieving factors improve symptom(s), No exacerbating factors reported . Patient notes no other symptoms.. Patient did receive the following treatments prior to arrival, none Related Data Home Medications Medication Instructions Recorded Confirmed albuterol sulfate 90 mcg/actuation 2 inh inhalation Q6H PRN 05/10/18 04/13/22 breath activated powder inhaler clindamycin phosphate 1 % topical 1 applic topical BID 03/23/19 04/13/22 solution medroxyprogesterone 5 mg tablet 5 mg PO DAILY #21 tabs 03/26/20 04/13/22 (Provera) budesonide-formoterol HFA 160 160 inh inhalation PRN PRN 09/26/21 04/13/22 mcg-4.5 mcg/actuation aerosol inhaler (Symbicort) dextroamphetamine-amphetamine 20 20 mg PO DAILY 09/26/21 04/13/22 mg tablet lorazepam 0.5 mg tablet 0.5 mg PO PRN PRN 09/26/21 04/13/22 metformin 500 mg tablet 500 mg PO DAILY 09/26/21 04/13/22 tiotropium bromide 18 mcg capsule 18 mcg inhalation DAILY 09/26/21 04/13/22 with inhalation device (Spiriva with HandiHaler) Previous Rx's Medication Instructions Recorded medroxyprogesterone 5 mg tablet 5 mg PO DAILY #21 tabs 03/26/20 (Provera) Allergies Allergy/AdvReac Type Severity Reaction Status Date / Time lamotrigine Allergy Intermediate body rash Verified 09/26/21 07:19 varenicline tartrate AdvReac Severe Psychotic Verified 09/26/21 07:19 [From Chantix] Reaction General Stated Complaint: Trauma JULI: 3 Review of Systems All systems reviewed & are unremarkable except as noted in HPI and below Constitutional Constitutional: Denies chills, Denies fever(s) and Denies weakness Cardiovascular Cardiovascular: Denies chest pain and Denies dyspnea Respiratory Respiratory: Denies cough and Denies dyspnea Gastrointestinal Gastrointestinal: Denies abdominal pain, Denies nausea and Denies vomiting Neurologic Neurologic: Denies weakness PFSH All Active Problems (Updated 04/13/22 @ 13:40 by Charles Olivia MD) Closed fracture of right thumb (Acute) Abnormal uterine bleeding (Acute) PCOS (polycystic ovarian syndrome) (Acute) Multiple lipomas (Acute) Hirsutism (Chronic 05/04/17) Migraine (Chronic 05/04/17) Medical History Acute sinusitis, unspecified Amenorrhea, unspecified Anxiety Attention and concentration deficit Body mass index (BMI) 40.0-44.9, adult Chronic back pain Constipation GERD (gastroesophageal reflux disease) Herpes simplex type 1 infection Hidradenitis suppurativa History of PCOS Hx of hemorrhoids Lipoma of back Macromastia Nonspecific abnormal Papanicolaou smear of cervix Obesity Reactive airways dysfunction syndrome Tobacco use Surgical History Biopsy, Soft Tissue (05/19/17) right breast - follicular cyst Family History Self Adopted Other Multiple lipomas Social History Smoking/Tobacco Use Status: Former Tobacco Use Smoking risk assessment performed?: Yes Drug use: Never Substance use type: does not use Do you feel safe at home: Yes Do you feel safe in your relationship?: Yes Female Reproductive History Menstrual control method: none History History 1 Para 0 Hx # Term Pregnancies Multiple births Hx # Pregnancies Ectopic pregnancies AB induced Hx Number of Living Children AB spontaneous Exam Const General: no acute distress Orientation: alert HENMT Head: normal to inspection Ears: external ears normal General nose exam: external nose normal Mouth: moist mucous membranes Eyes General: appearance normal, both eyes and all related structures Neck Neck: normal visual inspection Resp Effort & Inspection: normal respiratory effort and able to speak in complete sentences Cardio Rate: regular rate Skin General skin exam: no rashes or lesions noted Neuro General: patient alert and patient oriented x3 Extrem General: full ROM and capillary refill normal Psych Mental Status: mental status grossly normal Course Vital Signs Vital signs: Vital Signs Temperature 36.8 C 04/13/22 12:11 Pulse 88 04/13/22 12:11 Respiratory Rate 15 04/13/22 12:11 Blood Pressure 143/90 H 04/13/22 12:11 Pulse Oximetry 96 04/13/22 12:11 Temperature 36.8 C 04/13/22 12:11 Temperature Source Oral 04/13/22 12:11 Pulse 88 04/13/22 12:11 Respiratory Rate 15 04/13/22 12:11 Blood Pressure 143/90 H 04/13/22 12:11 Blood Pressure Position Sitting 04/13/22 12:11 Pulse Oximetry 96 04/13/22 12:11 Oxygen Delivery Method Room Air 04/13/22 12:11 Oxygen Flow Rate 0 04/13/22 12:11 Pain Level 5 04/13/22 12:11
--- NOTE | 2022-04-13 13:24 | DI.VRAD_ITS ---
PROCEDURE INFORMATION: Exam: XR Right Finger(s) Exam date and time: 04/13/2022 12:53 PM Age: 31 years old Clinical indication: Other: Pain S/P fall 2 days ago TECHNIQUE: Imaging protocol: Radiologic exam of the Right fingers. Views: Minimum 2 views. COMPARISON: No relevant prior studies available. FINDINGS: Bones/joints: There is a nondisplaced fracture through the base of the 1st distal phalanx. This is visible only on the AP projection. It does not appear to involve the DIP joint. Soft tissues: Mild soft tissue swelling of the thumb. IMPRESSION: Distal phalangeal fracture. Dictated and Authenticated by: Cain Beebe MD. Ordering:EMMA Soto MD
== END 2022-04-13 13:52 | disposition home or self-care (01) ==
PROVIDERS: Emergency Provider Emergency Medicine; PCP Nurse Practitioner Family
DX: S62.524A Nondisplaced fracture of distal phalanx of right thumb, initial encounter for closed fracture (principal); W01.0XXA Fall on same level from slipping, tripping and stumbling without subsequent striking against object, initial encounter; X50.1XXA Overexertion from prolonged static or awkward postures, initial encounter
CPT/HCPCS: 81025; 99283; 73140; 99284

== ENCOUNTER 2023-01-05 13:04 | Outpatient (REF) | payer MEDICAID, SELFPAY ==
[2023-01-05 15:39] LABS: ALT 31 U/L (14-59); AST 18 U/L (15-37); Albumin 4.1 g/dL (3.4-5.0); Alkaline Phosphatase 81 U/L (46-116); Anion Gap 8.8 mmol/L (3-11); BUN 15 mg/dL (7-18); Bilirubin, Total 0.3 mg/dL (0.2-1.0); CO2 28.2 mmol/L (21.0-32.0); CREATININE 0.8 mg/dL (0.55-1.02); Calcium 9.5 mg/dL (8.5-10.1); Chloride 105 mmol/L (98-107); Estimated GFR 99.71 (mL/min/1.73m2); Glucose 88 mg/dL (74-106); Sodium 142 mmol/L (136-145); TSH 2.18 uIU/mL (0.36-3.74); Total Protein 7.5 g/dL (6.4-8.2)
[2023-01-05 22:01] LABS: Hemoglobin A1C 5.4 % (<5.7)
== END 2023-01-05 13:05 | disposition home or self-care (01) ==
LOC: NCHCN 13:04
PROVIDERS: PCP Nurse Practitioner Family; Visit Provider Nurse Practitioner Family
DX: R73.03 Prediabetes (principal); E28.2 Polycystic ovarian syndrome; Z68.41 Body mass index [BMI] 40.0-44.9, adult
CPT/HCPCS: 80053; 83036; 84439; 84443

== ENCOUNTER 2023-11-27 15:12 | Outpatient (REF) | payer MEDICAID, SELFPAY ==
[2023-11-30 12:57] LABS: Chlamydia Result Negative (Negative); GC Result Negative (Negative)
== END 2023-11-27 15:13 | disposition home or self-care (01) ==
LOC: NCHCN 15:12
PROVIDERS: PCP Nurse Practitioner Family; Visit Provider Nurse Practitioner Family
DX: Z11.59 Encounter for screening for other viral diseases (principal)
CPT/HCPCS: 87491; 87591

== ENCOUNTER 2023-12-02 01:46 | Outpatient (CLI) | payer MEDICAID, SELFPAY ==
--- NOTE | 2023-12-02 10:55 | DI.RAD_ITS ---
Exam(s) XR HIP PELVIS ADULT BL EXAM: XR HIP PELVIS ADULT BL CLINICAL HISTORY: M25.551 Pain in Rt hip, M25.552 Pain in left hip. TECHNIQUE: 2D digital imaging was performed. COMPARISON: US PELVIS TRANSVAG from 07/31/2010 CR XR RIBS RT W PA LAT CHEST from 09/26/2021 FINDINGS: 3 views No evidence of pelvic nor hip fracture. No evidence of avascular necrosis bone density normal. No o sseous lesions. No significant hip joint space narrowing. No evidence of femoral neck bony excresce nces. No obvious osteophytes. There is, however, some prominence of the superolateral acetabular ri ms bilaterally evident. May be related to FA are pincer impingement IMPRESSION: No hip joint space narrowing but there is evidence of overhanging superolateral acetabular rims bilat erally. Correlation with any clinical signs of pincer-type femoroacetabular impingement recommended DATA REPOSITORY: RADIATION DOSE DELIVERED:
--- NOTE | 2023-12-02 10:55 | DI.RAD_ITS ---
Exam(s) XR FOOT RT COMPLETE EXAM: XR FOOT RT COMPLETE CLINICAL HISTORY: M79.671 Pain RT foot. TECHNIQUE: 2D digital imaging was performed of the right foot. Three images were obtained. AP, obl ique and lateral views were obtained. COMPARISON: No exams were available for comparison FINDINGS: BONES: No acute fracture is present. No bony destructive lesion is seen. There is a small plantar tam caneal spur. There is a small enthesophyte at the posterior calcaneus. JOINTS: No dislocation present. The joint spaces are well maintained. SOFT TISSUE: Normal. IMPRESSION: Calcaneal spurs. DATA REPOSITORY: RADIATION DOSE DELIVERED:
--- NOTE | 2023-12-02 10:55 | DI.RAD_ITS ---
Exam(s) XR FOOT LT COMPLETE EXAM: XR FOOT LT COMPLETE CLINICAL HISTORY: M79.672 Pain in Left foot. TECHNIQUE: 2D digital imaging was performed of the left foot. Three images were obtained. AP, obli que and lateral views were obtained. COMPARISON: No exams were available for comparison FINDINGS: BONES: No acute fracture is present. No bony destructive lesion is seen. There is a bipartite medial sesamoid at the head of the 1st metatarsal bone. There is a small plantar calcaneal spur. There is a small enthesophyte at the posterior calcaneus. JOINTS: No dislocation present. The joint spaces are well maintained. SOFT TISSUE: Normal. IMPRESSION: Calcaneal spurs. DATA REPOSITORY: RADIATION DOSE DELIVERED:
== END 2023-12-02 02:06 ==
LOC: DI 01:46
PROVIDERS: PCP Nurse Practitioner Family; Visit Provider Nurse Practitioner Family
DX: M79.671 Pain in right foot (principal); M79.672 Pain in left foot; M25.551 Pain in right hip
CPT/HCPCS: 73521; 73630

== ENCOUNTER 2024-11-07 19:01 | Emergency (ER) | payer MEDICAID, SELFPAY ==
[2024-11-07 19:06] VITALS: BP 127/82; PULSE 97; RESP 18; TEMP 37.1; O2SAT 94
--- NOTE | 2024-11-07 19:14 | ED.GENADUL_ITS ---
Discharge Plan Disposition Patient Disposition: Home Condition: Stable Discharge Details Clinical Impression: Cellulitis Primary Care Provider: Mavis Hernandez ED Provider: Mateo Carter Home Meds and New Rx's Prescriptions: New cephalexin 500 mg capsule 500 mg PO QID 10 Days Qty: 40 0RF doxycycline hyclate 100 mg capsule 100 mg PO BID 10 Days Qty: 20 0RF Continued diclofenac sodium [Voltaren Arthritis Pain] 1 % gel 2 g topical QID Rx Instructions: apply to single elbow, wrist or hand; for hand includes palm/fingers/back of hand albuterol sulfate 90 mcg/actuation aerosol powdr breath activated 2 inh IH Q6H PRN medroxyprogesterone [Provera] 5 mg tablet 5 mg PO DAILY Qty: 21 4RF Rx Instructions: Take the first 7 days of the month for with drawl bleed to follow (do not take if you suspect you are ) clindamycin phosphate 1 % solution 1 applic TP BID omeprazole 20 mg capsule,delayed release(DR/EC) 20 mg PO DAILY albuterol sulfate [Ventolin HFA] 90 mcg/actuation HFA aerosol inhaler 2 puff inhalation Q6H PRN metformin 500 mg tablet 500 mg PO DAILY Patient Comments: TAKE 1 TABLET BY MOUTH DAILY lorazepam 0.5 mg tablet 0.5 mg PO PRN PRN Patient Comments: TAKE 1 TABLET BY MOUTH TWICE DAILY NEEDED FOR ANXIETY dextroamphetamine-amphetamine 20 mg tablet 20 mg PO DAILY tiotropium bromide [Spiriva with HandiHaler] 18 mcg capsule, w/inhalation device 18 mcg INHALATION DAILY Patient Comments: INHALE THE CONTENTS OF 1 CAPSULE VIA INHALATION DEVICE EVERY DAY DIRECTED Discharge Instructions Instructions: Cephalexin, Doxycycline, Cellulitis (Skin Infection), Adult ED Additional Instructions: You were seen in the emergency department for your infection of the skin of your abdomen, this is suspicious for an insect bite but also a tick bite. I have sent off a tick panel which we should get results on in about 4 or 5 days, your Lyme disease result will be resulted in your portal tomorrow. I am starting you on 2 different antibiotics 1 called cephalexin which covers most bacteria's in 1 called doxycycline which covers MRSA as well as tickborne illnesses. Please take these as directed, if you result positive for tickborne illness you may need an extension of the doxycycline to 14 or 21 or even 28 days based on your symptoms from your primary care provider. Please return to the emergency department for any severe worsening despite treatment especially with fever and nausea and weakness, apply warm hot compress to the area multiple times per day. Take Tylenol and ibuprofen for pain. Referrals: Mavis Hernandez [Primary Care Provider, Medicine] Discharge Data Discharge Date/Time-TO BE ENTERED AT DEPARTURE: 11/07/24 20:34 HPI General Date/Time Provider Initiated Documentation: 11/07/24 19:13 . HPI Narrative: 34 year-old female presents to ED today by POV/ambulating with a chief complaint of possible insect bite to abdomen with onset 4 days ago. Quality described as redness, tenderness, swelling, no radiation to fever, active drainage, wilkinson erythema, nausea/weakness. Severity is described as mild to moderate. Palliating factors include nothing specific attempted. Provoking factors include nothing specific. Events leading up to the incident/Associated Symptoms: Patient states it could be a spider bite- close contact here for similar lesion last night. Patient not anticoagulated. Related Data Home Medications ?Medication ?Instructions ?Recorded ?Confirmed albuterol sulfate 90 mcg/actuation 2 inh inhalation Q6 H PRN 05/10/18 11/07/24 breath activated powder inhaler clindamycin phosphate 1 % topical 1 applic topical BID 03/23/19 11/07/24 solution medroxyprogesterone 5 mg tablet 5 mg PO DAILY #21 tabs 03/26/20 11/07/24 (Provera) dextroamphetamine-amphetamine 20 20 mg PO DAILY 11/07/24 mg tablet lorazepam 0.5 mg tablet 0.5 mg PO PRN PRN 09/26/21 0 11/07/24 metformin 500 mg tablet 500 mg PO DAILY 09/26/2104/02 tiotropium bromide 18 mcg capsule 18 mcg inhalation DA HAM 09/26/21 11/07/24 with inhalation device (Spiriva with HandiHaler) albuterol sulfate 90 mcg/actuation 2 puff inhalation Q 6H PRN 12/16/23 11/07/24 aerosol inhaler (Ventolin HFA) omeprazole 20 mg capsule,delayed 20 mg PO DAILY 11/07/24 release diclofenac sodium 1 % topical gel 2 g topical QID 12/0 05/3011/07/24 (Voltaren Arthritis Pain) cephalexin 500 mg capsule 500 mg PO QID 10 days #40 ca ps 11/07/24 doxycycline hyclate 100 mg capsule 100 mg PO BID 10 da ys #20 caps 11/07/24 Previous Rx's ?Medication ?Instructions ?Recorded medroxyprogesterone 5 mg tablet 5 mg PO DAILY #21 tabs 03/26/20 (Provera) cephalexin 500 mg capsule 500 mg PO QID 10 days #40 ca ps 11/07/24 doxycycline hyclate 100 mg capsule 100 mg PO BID 10 da ys #20 caps 11/07/24 Allergies Allergy/AdvReac Type Severity Reaction Status Date / Time lamotrigine Allergy Intermediate body rash Verified 11/07/24 19:10 varenicline tartrate (From AdvReac Severe Psychotic Verified 11/07/24 19:10 Chantix) Reaction General Stated Complaint: InsectBite JULI: 4 Review of Systems All systems reviewed & are unremarkable except as noted in HPI and below Exam Narrative Exam Narrative: GENERAL APPEARANCE: Well-nourished, non-toxic, awake and alert, atraumatic, no acute distress. SKIN: Warm, pink, dry, mild swelling and erythema 3cm to right upper quadrant skin of the abdomen with mild erythema, no fluctuant swelling, no lymphadenitis, no active drainage HEAD: Normocephalic, atraumatic, normal hair distribution for gender/age. EYES: Normal conjunctiva, no exudates on lids/lashes. ENT: Nares patent, no circumoral cyanosis, no facial swelling NECK: Supple, trachea midline, painless cervical ROM. LUNGS/CHEST: Non-labored respirations, normal A/P diameter, symmetrical expansion, no chest wall deformity HEART (CV/PV): No peripheral edema, no JVD. ABDOMEN: Soft, non-distended, no guarding. MSK: Normal ROM, no swelling/deformity to bilateral UEs or LEs, moving all extremities without weakness, no cyanosis, spine midline without tenderness, normal curvature. NEURO: Mental Status AAOx4 - alert to person, place, time, events No facial droop, no forehead involvement. Motor: No focal weakness - strength 5/5 in bilateral UEs and LEs, proximal and distal, symmetric. Sensory: sensation intact to light touch globally. Gait normal: patient ambulated without ataxia into ED room. PSYCH: euthymic, cooperative, pleasant, appropriate speech Course Vital Signs Vital signs: Vital Signs Temperature 37.1 C 11/07/24 19:06 Pulse 97 H 11/07/24 19:06 Respiratory Rate 18 11/07/24 19:06 Blood Pressure 127/82 11/07/24 19:06 Pulse Oximetry 94 11/07/24 19:06 Temperature 37.1 C 11/07/24 19:06 Temperature Source Oral 11/07/24 19:06 Pulse 97 H 11/07/24 19:06 Respiratory Rate 18 11/07/24 19:06 Blood Pressure 127/82 11/07/24 19:06 Blood Pressure Position Sitting 11/07/24 19:06 Pulse Oximetry 94 11/07/24 19:06 Oxygen Delivery Method Room Air 11/07/24 19:06 Oxygen Flow Rate 0 11/07/24 19:06 Pain Level 6 11/07/24 19:06 Medical Decision Making This dictation utilizes [id number] dictation software and may contain unedited grammatical errors. 34 year-old female presents to ED today by POV/ambulating with a chief complaint of possible insect bite to abdomen with onset 4 days ago. Quality described as redness, tenderness, swelling, no radiation to fever, active drainage, wilkinson erythema, nausea/weakness. Severity is described as mild to moderate. Palliating factors include nothing specific attempted. Provoking factors include nothing specific. Events leading up to the incident/Associated Symptoms: Patient states it could be a spider bite- close contact here for similar lesion last night. Patients' medical history: Noncontributory. Family and social history: Noncontributory. Pertinent exam findings / vital signs include mild swelling and erythema 3cm to right upper quadrant skin of the abdomen with mild erythema, no fluctuant swelling, no lymphadenitis, no active drainage, nontoxic and afebrile. Differential / pathologies of concern include cellulitis, insect bite, phlegmon. Diagnostic studies of: - Sent off a tick panel. Interventions of: - Rx for cephalexin and doxycycline. ED Course/Assessment/Plan: 34-year-old female presents with a mild cellulitis to the skin of her abdomen without evidence for abscess, I sent Keflex and Doxy to cover both common bacteria's and MRSA, wound is suspicious for an atypical erythema migrans so I sent off a tick panel, pending at discharge, strict return criteria for severe increase in size, redness, fever, lymphadenitis. Findings not consistent with sepsis, abscess. Disposition of cellulitis. Patient verbalized understanding of the plan and return to ED criteria and engaged in shared decision making. Medical Records Medical records reviewed: Yes I reviewed the patient's medical records. 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 (Acute) Metatarsalgia of both feet (Acute) GERD with esophagitis (Acute) Bilateral foot pain (Acute) Abnormal uterine bleeding (Acute) PCOS (polycystic ovarian syndrome) (Acute) Multiple lipomas (Acute) Hirsutism (Chronic 05/04/17) Migraine (Chronic 05/04/17) Medical History Herpes simplex type 1 infection Body mass index (BMI) 40.0-44.9, adult Reactive airways dysfunction syndrome Amenorrhea, unspecified Acute sinusitis, unspecified Macromastia Obesity Tobacco use Chronic back pain Attention and concentration deficit Constipation Hx of hemorrhoids Hidradenitis suppurativa Lipoma of back GERD (gastroesophageal reflux disease) Anxiety Nonspecific abnormal Papanicolaou smear of cervix History of PCOS Surgical History Biopsy, Soft Tissue (05/19/17) right breast - follicular cyst Family History Self Adopted Other Multiple lipomas Social History Smoking/Tobacco Use Status: Former Tobacco Use Smoking risk assessment performed?: Yes Alcohol Intake: current Alcohol Intake frequency: a few times a week Alcohol type: beer Drug use: Never Substance use type: does not use Do you feel safe at home: Yes Do you feel safe in your relationship?: Yes Female Reproductive History Menstrual control method: none History History 1 Para 0 Hx # Term Pregnancies Multiple births Hx # Pregnancies Ectopic pregnancies AB induced Hx Number of Living Children AB spontaneous
[2024-11-07] MEDS: Doxycycline Hyclate 100 MG CAP PO (20:21)
[2024-11-07] MEDS: Cephalexin 500 MG CAP PO (20:21)
[2024-11-09 11:28] LABS: Lyme Ab w Rflx to Lyme Confirm Negative (Negative)
--- NOTE | 2024-11-10 07:41 | NUR.NOTE ---
Nursing Note: Pt called asking about her tick and lyme results. The Lyme has come back as negative but the others are still pending. She has been notified of this and will call back again in a few more days.
[2024-11-10 17:24] LABS: B. miyamotoi PCR Negative (Negative); Babesia divergens/MO-1 Negative (Negative); Ehrlichia muris eauclairensis Negative (Negative)
== END 2024-11-07 20:34 | disposition home or self-care (01) ==
PROVIDERS: Emergency Provider Physician Assistant; PCP Nurse Practitioner Family
DX: W57.XXXA Bitten or stung by nonvenomous insect and other nonvenomous arthropods, initial encounter; L03.311 Cellulitis of abdominal wall
CPT/HCPCS: 99283 ×2; 87798; 86618

== ENCOUNTER 2024-12-28 18:39 | Emergency (ER) | payer MEDICAID, SELFPAY ==
[2024-12-28 18:55] VITALS: BP 144/90; PULSE 74; RESP 20; TEMP 36.9; O2SAT 96
[2024-12-28 18:59] VITALS: BP 144/90; PULSE 74; RESP 20; TEMP 36.9; O2SAT 96
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
[2024-12-28] MEDS: Acetaminophen 250 mg/Aspirin 250 mg/Caffeine 65 mg TAB 2 EACH PO (20:18)
[2024-12-28] MEDS: Rabies Immune Globulin 300 UNIT/ML VIAL 1400 UNIT IM (20:18)
[2024-12-28] MEDS: Rabies vaccine (PCEC)/PF 2.5 UNITS/ML VIAL IM (20:19)
--- NOTE | 2024-12-28 20:23 | NUR.NOTE ---
Nursing Note:Outpatient Rabies Vaccine Physician Order faxed to Infusion. Copy provided to patient and origional sent to Medical Records
[2024-12-28 21:11] VITALS: BP 168/74; PULSE 76; RESP 18; O2SAT 99
--- NOTE | 2024-12-31 09:58 | NUR.NOTE ---
Access chart to determine where the rabies vaccine will be given today. Nursing Note:
== END 2024-12-28 21:12 | disposition home or self-care (01) ==
PROVIDERS: Emergency Provider Emergency Medicine; PCP Nurse Practitioner Family
DX: R51.9 Headache, unspecified (principal); Z20.3 Contact with and (suspected) exposure to rabies; Z87.891 Personal history of nicotine dependence
CPT/HCPCS: 90375; 90471; 96372; 99283; 90675

== ENCOUNTER 2024-12-31 10:32 | Emergency (ER) | payer MEDICAID, SELFPAY ==
[2024-12-31 10:34] VITALS: BP 142/66; PULSE 76; RESP 15; TEMP 36.6; O2SAT 98
--- NOTE | 2024-12-31 10:39 | W.ED.GENAD ---
Discharge Plan Disposition Patient Disposition: Home Condition: Stable Discharge Details Clinical Impression: Encounter for administration of vaccine Primary Care Provider: Mavis Hernandez ED Provider: Vania Diaz Home Meds and New Rx's Prescriptions: No Action albuterol sulfate 90 mcg/actuation aerosol powdr breath activated 2 inh IH Q6H PRN clindamycin phosphate 1 % solution 1 applic TP BID omeprazole 20 mg capsule,delayed release(DR/EC) 20 mg PO DAILY albuterol sulfate [Ventolin HFA] 90 mcg/actuation HFA aerosol inhaler 2 puff inhalation Q6H PRN lorazepam 0.5 mg tablet 0.5 mg PO PRN PRN Patient Comments: TAKE 1 TABLET BY MOUTH TWICE DAILY NEEDED FOR ANXIETY dextroamphetamine-amphetamine 20 mg tablet 20 mg PO DAILY tiotropium bromide [Spiriva with HandiHaler] 18 mcg capsule, w/inhalation device 18 mcg INHALATION DAILY Patient Comments: INHALE THE CONTENTS OF 1 CAPSULE VIA INHALATION DEVICE EVERY DAY DIRECTED Discharge Instructions Instructions: Rabies Vaccine CDC Vaccine Information Statement (VIS) Additional Instructions: You were seen in the emergency department today for your second dose of rabies vaccine. I am glad to hear that you are still doing well, you will need to get 2 more doses after today's dose at the infusion clinic. Please continue to take all medications as prescribed, and follow-up with your primary care provider to discuss your headaches. Please follow-up with your primary care provider in the next few days to discuss this visit and any symptoms that change, worsen, or persist. Thank you for allowing us to be part of your care. HPI General Mode of arrival: ambulatory. Date/Time Provider Initiated Documentation: 12/31/24 10:37. Limitations to Documentation: no limitations. Information obtained by: patient and old records reviewed. HPI Narrative: This is a 34-year-old female patient presenting for her second rabies vaccination. The patient was in extended contact with a groundhog suspected of having rabies, no distinct bites but did have contact with salivary products when cleaning its food and water bowls. The animal was not able to be tested. This is day 3, patient completed her initial immunoglobulin series and first vaccination in our emergency department, please see that note for full details of the patient's exposure. The patient states that she has been doing fairly well, continues to have headaches consistent with her history of tension headaches, for which she has been utilizing Excedrin Migraine to good effect, though sparingly. No acute concerns at today's visit. Related Data Home Medications ?Medication ?Instructions ?Recorded ?Confirmed albuterol sulfate 90 mcg/actuation 2 inh inhalation Q6H PRN 05/10/18 12/31/24 breath activated powder inhaler clindamycin phosphate 1 % topical 1 applic topical BID 03/23/19 12/31/24 solution dextroamphetamine-amphetamine 20 20 mg PO DAILY 09/26/21 12/31/24 mg tablet lorazepam 0.5 mg tablet 0.5 mg PO PRN PRN 09/26/21 12/31/24 tiotropium bromide 18 mcg capsule 18 mcg inhalation DAILY 09/26/21 12/31/24 with inhalation device (Spiriva with HandiHaler) albuterol sulfate 90 mcg/actuation 2 puff inhalation Q6H PRN 12/16/23 12/31/24 aerosol inhaler (Ventolin HFA) omeprazole 20 mg capsule,delayed 20 mg PO DAILY 12/16/23 12/31/24 release Allergies Allergy/AdvReac Type Severity Reaction Status Date / Time lamotrigine Allergy Intermediate body rash Verified 12/31/24 10:38 varenicline tartrate (From AdvReac Severe Psychotic Verified 12/31/24 10:38 Chantix) Reaction General Stated Complaint: RepeatRabiesInjection JULI: 4 Exam Narrative Exam Narrative: Gen: Awake and alert, in no apparent distress HEENT: Non-icteric sclera Neck: Supple Lungs: No apparent respiratory distress, normal respiratory effort. CV: Appears well perfused Abdomen: Non-distended MSK: Moves 4 extremities without apparent limitation in ROM Skin: Visualized skin without rashes, cyanosis. Neuro: Normal Gait, no obvious focal deficits or facial asymmetry. Speaks in full, clear sentences. Psych: Appropriate for situation. Course Vital Signs Vital signs: Vital Signs Temperature 36.6 C 12/31/24 10:34 Pulse 76 12/31/24 10:34 Respiratory Rate 15 12/31/24 10:34 Blood Pressure 142/66 H 12/31/24 10:34 Pulse Oximetry 98 12/31/24 10:34 Temperature 36.6 C 12/31/24 10:34 Temperature Source Temporal Artery Scan 12/31/24 10:34 Pulse 76 12/31/24 10:34 Respiratory Rate 15 12/31/24 10:34 Blood Pressure 142/66 H 12/31/24 10:34 Blood Pressure Position Sitting 12/31/24 10:34 Pulse Oximetry 98 12/31/24 10:34 Oxygen Delivery Method Room Air 12/31/24 10:34 Oxygen Flow Rate 0 12/31/24 10:34 Pain Level 0 12/31/24 10:34 Medical Decision Making This is a 34-year-old female patient presenting for evaluation for her second rabies vaccine. Reassuringly, the patient is hemodynamically appropriate, with no acute medical complaints today. She is not experiencing any clinical symptoms concerning for active rabies infection, her headache is consistent with her prior tension headaches, and are responsive to [id number] medications with no concerning features to warrant intracranial imaging or to increase my concern for intracranial pathology such as hemorrhage, mass effect, etc. The rabies vaccine was administered, her remaining 2 doses will occur in the infusion clinic, and at this time, the patient has had a full medical evaluation and is safe for discharge to home. They are hemodynamically stable, ambulatory, and tolerating PO. They are understanding of the follow-up plan and return precautions. They left our facility without incident. 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 (Acute) Metatarsalgia of both feet (Acute) GERD with esophagitis (Acute) Bilateral foot pain (Acute) Abnormal uterine bleeding (Acute) PCOS (polycystic ovarian syndrome) (Acute) Multiple lipomas (Acute) Hirsutism (Chronic 05/04/17) Migraine (Chronic 05/04/17) Medical History Herpes simplex type 1 infection Body mass index (BMI) 40.0-44.9, adult Reactive airways dysfunction syndrome Amenorrhea, unspecified Acute sinusitis, unspecified Macromastia Obesity Tobacco use Chronic back pain Attention and concentration deficit Constipation Hx of hemorrhoids Hidradenitis suppurativa Lipoma of back GERD (gastroesophageal reflux disease) Anxiety Nonspecific abnormal Papanicolaou smear of cervix History of PCOS Surgical History Biopsy, Soft Tissue (05/19/17) right breast - follicular cyst Family History Self Adopted Other Multiple lipomas Social History Smoking/Tobacco Use Status: Former Tobacco Use Smoking risk assessment performed?: Yes Alcohol Intake: current Alcohol Intake frequency: a few times a week Alcohol type: beer Drug use: Never Substance use type: does not use Do you feel safe at home: Yes Do you feel safe in your relationship?: Yes Female Reproductive History Menstrual control method: none History History 1 Para 0 Hx # Term Pregnancies Multiple births Hx # Pregnancies Ectopic pregnancies AB induced Hx Number of Living Children AB spontaneous
[2024-12-31] MEDS: Rabies vaccine (PCEC)/PF 2.5 UNITS/ML VIAL IM (11:05)
== END 2024-12-31 11:13 | disposition home or self-care (01) ==
PROVIDERS: Emergency Provider Emergency Medicine; PCP Nurse Practitioner Family
DX: Z20.3 Contact with and (suspected) exposure to rabies (principal); Z23 Encounter for immunization
CPT/HCPCS: 99283; 99284; 90471; 90675

== ENCOUNTER 2025-01-04 02:26 | Outpatient (RCR) | payer MEDICAID, SELFPAY ==
[2025-01-04] MEDS: Rabies vaccine (PCEC)/PF 2.5 UNITS/ML VIAL IM (14:47)
== END 2025-01-06 23:59 | disposition home or self-care (01) ==
LOC: INF 02:26
PROVIDERS: PCP Nurse Practitioner Family; Visit Provider Emergency Medicine
DX: Z20.3 Contact with and (suspected) exposure to rabies (principal); Z29.14 Encounter for prophylactic rabies immune globulin
CPT/HCPCS: 96372; 90675

== ENCOUNTER 2025-01-10 01:18 | Outpatient (RCR) | payer MEDICAID, SELFPAY ==
[2025-01-10] MEDS: Rabies vaccine (PCEC)/PF 2.5 UNITS/ML VIAL IM (10:49)
== END 2025-02-05 23:59 | disposition home or self-care (01) ==
LOC: INF 01:18
PROVIDERS: PCP Nurse Practitioner Family; Visit Provider Emergency Medicine
DX: Z02.3 Encounter for examination for recruitment to armed forces (principal); Z29.14 Encounter for prophylactic rabies immune globulin; Z23 Encounter for immunization
CPT/HCPCS: 90471; 90675